=== PATIENT | female | born 1930 | race Caucasian/White ===

== ENCOUNTER 2016-10-03 12:41 | Observation (INO) | payer OTHER ==
--- NOTE | ~2016-10-03 | CR72 ---
[facility] A Service of [facility] & [facility] RADIOLOGY TEXT RESULTS PATIENT: YNES SOTOMAYOR LOCATION: [facility] : 30 UNIT #: [id number] AGE: [address]: SWETHA WALLS MD SEX: F ORDER DR: [id number] [facility] [address]. [place], [place] [address] [id number] E MR#: [id number] Acc #: [id number] NAME: YNES SOTOMAYOR. : 1930 SEX: F STUDY DATE/TIME: 10/03/2016 12:43 UNIT: [facility] ROOM: STUDY DESCRIPTION: CR Chest Single View Portable Attending Physician: Nam Barrera M.D. Ordering Physician: Nam Barrera M.D. Primary Care Physician: Cornelio Li M.D. MEDICAL IMAGING REPORT This report is preliminary unless electronic signature is present EXAM Single view chest INDICATIONS Shortness of air. One day duration. Hypertension. FINDINGS Single portable AP view of the chest compared to 10/22/2015. Heart and mediastinal contours are normal. There is background COPD and chronic interstitial opacities. Elevation of the right hemidiaphragm is noted. No pleural effusion. IMPRESSION 1. COPD and chronic interstitial opacities are unchanged. 2. Elevated right hemidiaphragm is unchanged. Dictated by... Kenyon Archuleta M.D. THIS IS AN ELECTRONICALLY VERIFIED REPORT Kenyon Archuleta M.D. at 10/03/2016 4:13 PM RPPeter/rosina TD: 10/03/2016 14:08 JOB #: [id number] MEDICAL IMAGING REPORT Page 1 of 1 COPY
--- NOTE | ~2016-10-03 | US37 ---
[facility] A Service of [facility] & [facility] RADIOLOGY TEXT RESULTS PATIENT: YNES SOTOMAYOR LOCATION: [facility] 319-01 : 30 UNIT #: [id number] AGE: [address]: SWETHA GARCIA MD SEX: F ORDER DR: [id number] [facility] [address] [facility]. [place], [place] [address] [id number] I MR#: [id number] Acc #: [id number] NAME: YNES SOTOMAYOR. : 1930 SEX: F STUDY DATE/TIME: 10/03/2016 16:11 UNIT: [facility] ROOM: [id number] STUDY DESCRIPTION: US Carotid W/Doppler Bilateral Attending Physician: Swetha Garcia M.D. Ordering Physician: Ed Kamaljit Willis M.D. Primary Care Physician: Cornelio Li M.D. MEDICAL IMAGING REPORT This report is preliminary unless electronic signature is present EXAM Carotid Doppler ultrasound HISTORY Diplopia on the left for the past several days. Chronic hypertension. TECHNIQUE Ultrasound evaluation was performed with galindo-scale, color-flow, and Doppler spectral waveform analysis. FINDINGS There is minimal plaque in both carotid bulbs. Flow velocities are normal. Peak internal carotid systolic velocity is 75 cm/sec on the right and 83 cm/sec on the left. The waveform pattern is normal on both sides. There is no evidence of turbulent flow. The IC:CC ratios are normal at 1.14 on the right and 1.05 on the left. Antegrade flow is seen in the vertebral arteries. IMPRESSION Minimal plaque in both carotid bulbs. No significant stenosis by NASCET criteria. Otherwise negative study. Normal velocities and waveforms. STAT * RESULT Dictated by... Nam Ceballos M.D. THIS IS AN ELECTRONICALLY VERIFIED REPORT Nam Ceballos M.D. at 10/03/2016 10:16 PM RLF/omid [facility] A Service of [facility] & [facility] RADIOLOGY TEXT RESULTS PATIENT: YNES SOTOMAYOR LOCATION: [facility] 319-01 : 30 UNIT #: [id number] AGE: [address]: SWETHA GARCIA MD SEX: F ORDER DR: TD: 10/03/2016 17:09 JOB #: [id number] MEDICAL IMAGING REPORT Page 1 of 1 COPY
--- NOTE | ~2016-10-03 | CT4 ---
[facility] A Service of [facility] RADIOLOGY TEXT RESULTS PATIENT: YNES SOTOMAYOR LOCATION: [facility] : 30 UNIT #: [id number] AGE: [address]: Nkechi Ambriz MD SEX: F ORDER DR: [id number] [place] [id number] [facility]. [place], [place] [address] [id number] I MR#: [id number] Acc #: [id number] NAME: YNES SOTOMAYOR : 1930 SEX: F STUDY DATE/TIME: 10/04/2016 14:26 UNIT: [facility] PCU ROOM: [facility] STUDY DESCRIPTION: CT Abd and Pelv Wo Cont Attending Physician: Nkechi Ambriz M.D. Ordering Physician: Nkechi Ambriz M.D. Primary Care Physician: Cornelio Li M.D. MEDICAL IMAGING REPORT This report is preliminary unless electronic signature is present EXAM CT of the abdomen and pelvis without contrast. INDICATIONS Abdominal pain for [address] of the abdomen and pelvis was performed without contrast. Coronal and sagittal reformatted images were obtained. This CT exam was performed with one or more of the following radiation dose reduction techniques: automatic exposure control, adjustment of mA and/or kV according to patient size, and iterative reconstruction. COMPARISON Compared with 09/27/2015. FINDINGS There are fibrotic changes in the lung bases. Small hiatal hernia. The liver and gallbladder are unremarkable. Stable cyst in the spleen. The kidneys are unremarkable. The adrenal glands and pancreas are unremarkable. PELVIS: There are scattered diverticula within the sigmoid. There is no evidence for diverticulitis. There has been a previous appendectomy. There is no free fluid. Bone windows are unremarkable. IMPRESSION 1. Scattered diverticula within the sigmoid colon, but no evidence for diverticulitis. 2. Stable cyst within the spleen. 3. Small hiatal hernia. [facility] A Service of [facility] RADIOLOGY TEXT RESULTS PATIENT: YNES SOTOMAYOR LOCATION: [facility] : 30 UNIT #: [id number] AGE: [address]: Nkechi Ambriz MD SEX: F ORDER DR: Dictated by... Andrea Becerril M.D. THIS IS AN ELECTRONICALLY VERIFIED REPORT Andrea Becerril M.D. at 10/04/2016 4:43 PM JOSE/omid TD: 10/04/2016 16:05 JOB #: [id number] MEDICAL IMAGING REPORT Page 1 of 1 COPY
--- NOTE | ~2016-10-03 | DS ---
Unit #: [id number] #: [id number] Patient: YNES SOTOMAYOR [id number] [address] [place], [place] [address] [id number] I MR#: [id number] NAME: YNES SOTOMAYOR. ROOM: 319 Age: 86 Sex: F Admission Date: 10/03/2016 : 1930 Discharge Date: 10/04/2016 Attending Physician: Nkechi Ambriz M.D. Primary Care Physician: Cornelio Li M.D. DISCHARGE SUMMARY PRINCIPAL DIAGNOSES 1. Vasovagal syncope. 2. Nonspecific chronic lower abdominal pain with pending CT scan of the abdomen and pelvis. 3. Hypertension. 4. Imdur induced headache. 5. Hyperlipidemia. 6. Anxiety. 7. Hyperlipidemia. 8. Gastroesophageal reflux disease. CONSULTANTS None. PROCEDURES 1. CT scan of the abdomen and pelvis without contrast which is currently pending. 2. Carotid Doppler, on October 03, 2016, which was normal. No stenosis per NASCET criteria. 3. Chest x-ray, on October 03, 2016, with chronic interstitial opacities and changes of COPD. Elevated right hemidiaphragm noted. This is chronic. CLINICAL HISTORY AND HOSPITAL COURSE Ms. Sotomayor is an 86-year-old female who presented to the emergency department after an episode of syncope at the [facility]. The patient was leaning her head forward having her neck shaved when she abruptly passed out. The patient awakened and was not confused. She subsequently presented to the hospital for evaluation. Vital signs upon presentation were stable with the exception of some mildly elevated blood pressure. Imaging in the emergency department was unremarkable. The patient was placed in observation for evaluation. The patient has remained on telemetry overnight without any significant arrhythmia. She did have occasional PVCs. She is not complaining of dizziness and has not had any further syncopal episodes. I suspect this was vasovagal in origin which I have discussed with the patient's daughter and the patient as well. No further workup necessary. The patient is complaining of some chronic abdominal pain that she describes as achy, better with a heating pad, happens after a bowel movement and then she feels significant fatigue. She does not have any other significant findings outside of some constipation for which she is taking medications. This has been evaluated by Dr. Pisano as an Unit #: [id number] #: [id number] Patient: YNES SOTOMAYOR outpatient. The patient's daughter feels it is mostly anxiety in origin and I tend to agree. However, the patient has insisted she feels bad and, thus, I am going to do a CT scan of abdomen and pelvis. However, if this is unremarkable, she can be discharged home later today. DISCHARGE CONDITION Stable. DISCHARGE STATUS Discharged to home. DISCHARGE MEDICATIONS 1. Xanax 0.25 mg b.i.d. 2. Norvasc 5 mg daily. 3. Crestor 20 mg at bedtime. 4. Valsartan 160 mg daily. 5. A daily multivitamin. 6. Aspirin 325 mg daily. 7. Protonix 40 mg daily. 8. Caltrate 600 mg plus D one b.i.d. 9. Vitamin B12 1,000 mcg p.o. daily. The patient is complaining of headaches from Imdur and I told her to hold this medication and contact Dr. Melchor. DISCHARGE INSTRUCTIONS 1. The patient was instructed to follow a Heart Healthy diet. 2. She can increase her activity as tolerated. FOLLOWUP The patient will follow up with her primary care physician, Dr. Li, in approximately one week. She is to contact Dr. Melchor and inform him she has stopped the Imdur. She will follow up with Dr. Pisano as instructed. Dictated by... Nkechi Ambriz M.D. SEKOU/mulugeta TD: 10/05/2016 19:17 JOB #: [id number] DISCHARGE SUMMARY Page 1 of 1 X Nkechi Ambriz MD DISCHARGE SUMMARY
--- NOTE | ~2016-10-03 | EKG ---
PATIENT: YNES SOTOMAYOR UNIT #: [id number] Ventricular Rate: 79 BPM Atrial Rate: 79 BPM P-R Interval: 148 ms QRS Duration: 76 ms Q-T Interval: 394 ms QTC Calculation(Bezet): 451 ms P [place]: 32 degrees Calculated R [place]: -14 degrees Calculated T [place]: 31 degrees Diagnosis Line: Normal sinus rhythm Diagnosis Line: Moderate voltage criteria for LVH, may be normal Diagnosis Line: variant Diagnosis Line: Borderline ECG Diagnosis Line: When compared with ECG of 03-OCT-2016 12:46, Diagnosis Line: (unconfirmed) Diagnosis Line: No significant change was found Diagnosis Line: Confirmed by LEO HAN MD ([id number]) on Diagnosis Line: 10/03/2016 9:38:22 PM INTERPRETING MD: ARSH
--- NOTE | ~2016-10-03 | HP ---
Unit #: [id number] #: [id number] Patient: YNES SOTOMAYOR [id number] [address] [place], [place] [address] [id number] E MR#: [id number] NAME: YNES SOTOMAOYR. ROOM: Age: 86 Sex: F Admission Date: 10/03/2016 : 1930 Attending Physician: Nam Barrera M.D. Primary Care Physician: Cornelio Li M.D. HISTORY AND PHYSICAL CHIEF COMPLAINT A syncopal episode. HISTORY OF PRESENT ILLNESS The patient is an 86-year-old female with a past medical history of hypertension, hyperlipidemia, GERD, anxiety, brought to the emergency room with a syncopal episode. The patient was at the [facility] and just had the hair washed and patient's neck was bent to clean up the back of the neck and the patient had the syncopal episode for two to three minutes. The patient was alright but the but the eyes were rolled up and the patient denies any head trauma. The patient complains of the headache. The patient took the Xanax earlier this morning after breakfast. The patient denies any visual changes or any numbness or tingling sensation. The patient denies any chest pain, arrhythmias or shortness of breath. The patient is being admitted for the above reasons. PAST MEDICAL HISTORY History of hypertension, hyperlipidemia, acute anxiety. PAST SURGICAL HISTORY Appendectomy. SOCIAL HISTORY The patient lives alone. She denies tobacco, alcohol or any illicit drug abuse. Code status is Do Not Resuscitate, from the records. FAMILY HISTORY Notable for sisters having CVAs. ALLERGIES No known drug allergies. HOME MEDICATIONS She is on Protonix, Xanax, Lipitor and Diovan, Norvasc, multivitamins, baby aspirin. REVIEW OF SYMPTOMS Fourteen-point review of symptoms performed and only pertinent positive findings as described above, remaining are negative. PHYSICAL EXAMINATION GENERAL APPEARANCE: On examination the patient is lying on a bed, not in acute distress. Unit #: [id number] #: [id number] Patient: YNES SOTOMAYOR VITAL SIGNS: Temperature is 97.8, pulse 85, respirations 16, blood pressure 127/81, sating 95% at room air. HEENT: Head atraumatic, normocephalic. Pupils equal, round and reactive to light and accommodation. Extraocular movements are intact. NECK: Supple. LUNGS: Clear to auscultation. HEART: Regular rate and rhythm. ABDOMEN: Soft, positive bowel sounds. EXTREMITIES: No swelling. No clubbing. No pedal edema. NEUROLOGIC: Alert, awake, oriented. No gross focal motor deficit. DIAGNOSTIC STUDIES LABORATORY DATA: Glucose 137, BUN 25, creatinine 1.2, sodium 138, potassium 4.6, chloride 105, bicarbonate 23, calcium 9.2, WBC 10.5, hemoglobin 12.5, hematocrit 38.7, platelets 274, neutrophils 78.9. UA shows 1+ leukocyte esterase and 10 to 25 urine WBCs and 50 to 100 urine hyaline crystals and a few squamous epithelial cells, negative urine bacteria. IMAGING: Chest x-ray shows COPD and chronic interstitial opacities are unchanged. ASSESSMENT 1. Syncope. 2. Hypertension. 3. Hyperlipidemia. 4. Questionable cystitis/urinary tract infection. PLAN 1. Plan to admit the patient to the observation with the telemetry. 2. Rule out ischemia with serial troponin. 3. Check the carotid Doppler. 4. Repeat the labs again in the morning. 5. Check the straight cath to rule out the UTI. Further recommendations will follow as more lab results are available. Dictated by Robin Melton TD: 10/03/2016 15:06 JOB #: [id number] Unit #: [id number] #: [id number] Patient: YNES SOTOMAYOR HISTORY AND PHYSICAL Page 1 of 1 X X HISTORY AND PHYSICAL
--- NOTE | ~2016-10-03 | EKG ---
PATIENT: YNES SOTOMAYOR UNIT #: [id number] Ventricular Rate: 83 BPM Atrial Rate: 83 BPM P-R Interval: 136 ms QRS Duration: 78 ms Q-T Interval: 390 ms QTC Calculation(Bezet): 458 ms P [place]: 36 degrees Calculated R [place]: -15 degrees Calculated T [place]: 31 degrees Diagnosis Line: Normal sinus rhythm Diagnosis Line: Moderate voltage criteria for LVH, may be normal Diagnosis Line: variant Diagnosis Line: Borderline ECG Diagnosis Line: When compared with ECG of 22-OCT-2015 08:21, Diagnosis Line: No significant change was found Diagnosis Line: Confirmed by LEO HAN MD ([id number]) on Diagnosis Line: 10/03/2016 9:37:20 PM INTERPRETING : ARSH
--- NOTE | ~2016-10-03 | DS ---
Unit #: [id number] #: [id number] Patient: YNES SOTOMAYOR [id number] [address] [address] [id number] I MR#: [id number] NAME: YNES SOTOMAYOR. ROOM: 319 Age: 86 Sex: F Admission Date: 10/03/2016 : 1930 Discharge Date: 10/04/2016 Attending Physician: Nkechi Ambriz M.D. Primary Care Physician: Cornelio Li M.D. DISCHARGE SUMMARY ADDENDUM Please note, patient's CT scan of the abdomen and pelvis did not reveal any acute abnormalities, and she was discharged home. Dictated by... Robin Nick/bart TD: 10/06/2016 15:14 JOB #: [id number] DISCHARGE SUMMARY Page 1 of 1 X Nkechi Ambriz MD X DISCHARGE SUMMARY
[~2016-10-03 12:41] MED LIST: ACETAMINOPHEN PO; ALPRAZOLAM0.25 M1 PO; AMLODIPINE BESYL5 MG PO; B-12250 MCG PO; BACTRIM DS TABL1 TA2 PO; BAYER ASPIRIN325 M1 PO; CALTRATE 600+D PO; CALTRATE-600/VI1 TA2 PO; CIPRO PO; CRESTOR PO; DIOVAN HCT 160/1 TAB PO; DIOVAN160 MG DOB; FAMOTIDINE PO; LIPITOR PO; MIACALCIN4 ML; MULTI VITAMIN1 EACH PO; OMEPRAZOLE20 M2 PO; PREDNISONE PO; PRILOSEC PO; PROAIR HFA8.5 GM INH; REGLAN PO; TESSALON200 MG PO; TRILIPEX PO; VIBRAMYCIN100 M1 DOB; ZOFRAN PO; [UNRECOGNIZED DRUG - OTHER] PO
[2016-10-03 13:09] LABS: URINE SOURCE CLEAN CATCH
[2016-10-03 13:16] LABS: BASOPHIL# 0.1 X10e3 (0-0.3); BASOPHIL% 0.6 % (0-2.5); EOSINOPHIL# 0.1 X10e3 (0-0.7); EOSINOPHIL% 0.9 % (0.0-7.0); HEMATOCRIT 38.7 % (35.0-45.0); HEMOGLOBIN 12.5 gm/dL (12.0-16.0); LYMPHOCYTE# 1.5 X10e3 (1.0-3.5); LYMPHOCYTE% 13.9 % (17.0-45.0); MEAN CELL VOLUME 87.9 FL (83-96); MEAN CORPUSCULAR HEMOGLOBIN 28.4 PG (28-34); MEAN CORPUSCULAR HGB CONC 32.3 g/dL (30-36); MEAN PLATELET VOLUME 8.4 FL (6.5-11.5); MONOCYTE# 0.6 X10e3 (0-1.0); MONOCYTE% 5.7 % (3.0-12.0); NEUTROPHIL# 8.3 X10e3 (1.5-7.1); NEUTROPHIL% 78.9 % (40-75); PLATELET COUNT 274 X10e3 (140-420); RED CELL DISTRIBUTION WIDTH 14.9 % (11.0-15.5); WHITE BLOOD COUNT 10.5 X10e3 (4.0-10.5)
[2016-10-03 13:16] LABS: URINE APPEARANCE CLOUDY; URINE BLOOD NEG (NEG); URINE COLOR DK YELLOW; URINE GLUCOSE NEG (NEG); URINE KETONE TRACE (NEG); URINE LEUKOCYTE ESTERASE 1+ (NEG); URINE NITRATE NEG (NEG); URINE PROTEIN NEG (NEG)
[2016-10-03 13:18] LABS: URINE BACTERIA AUWI NEG (NEGATIVE); URINE SQUAMOUS EPITHELIAL CELL FEW /[HPF]
[2016-10-03 13:25] LABS: DIFF IND NO
[2016-10-03 13:26] LABS: URINE BILIRUBIN NEG (NEG)
[2016-10-03 13:27] LABS: U HYALINE CASTS AUWI 50-100 /[LPF]
[2016-10-03 13:28] LABS: URBCS1 AUWI NEG /[HPF] (0-2)
[2016-10-03 13:40] LABS: BUN/CREATININE RATIO 20.83; CALCIUM SERUM 9.2 mg/dL (8.4-10.2); CREATININE SERUM 1.2 mg/dL (0.6-1.4); GLOM FILT RATE Estimated 40.9 mL/min (>60); POTASSIUM 4.6 mmol/L (3.5-5.1)
[2016-10-03] MEDS ORDERED: PROTONIX PO (14:40)
[2016-10-03] MEDS ORDERED: ALPRAZOLAM0.25 MG PO (14:40)
[2016-10-03] MEDS ORDERED: VALSARTAN160 MG PO (14:41)
[2016-10-03] MEDS ORDERED: AMLODIPINE BESYL5 MG PO (14:41)
[2016-10-03] MEDS ORDERED: ROSUVASTATIN CA20 MG PO (14:41)
[2016-10-03] MEDS ORDERED: MULTIVITAMINS1 EAC3 PO (14:42)
[2016-10-03] MEDS ORDERED: VITAMIN B122500 MCG PO (14:42)
[2016-10-03] MEDS ORDERED: CALTRATE 600 +1 EACH PO (14:43)
[2016-10-03] MEDS ORDERED: IMDUR-ER30 M2 PO (14:43)
[2016-10-03] MEDS ORDERED: BAYER ASPIRIN325 M1 PO (14:43)
[2016-10-04 06:09] LABS: HEMATOCRIT 38.1 % (35.0-45.0); HEMOGLOBIN 12.4 gm/dL (12.0-16.0); MEAN CORPUSCULAR HEMOGLOBIN 28.4 PG (28-34); MEAN CORPUSCULAR HGB CONC 32.6 g/dL (30-36); MEAN PLATELET VOLUME 8.6 FL (6.5-11.5); RED BLOOD COUNT 4.38 X10e (3.90-5.30); RED CELL DISTRIBUTION WIDTH 14.9 % (11.0-15.5); WHITE BLOOD COUNT 8.9 X10e3 (4.0-10.5)
[2016-10-04 06:54] LABS: BUN/CREATININE RATIO 17.5; CALCIUM SERUM 9.2 mg/dL (8.4-10.2); CREATININE SERUM 1.2 mg/dL (0.6-1.4); GLOM FILT RATE Estimated 40.9 mL/min (>60)
== END 2016-10-04 17:55 | disposition home or self-care (01) ==
LOC: CED 12:41 → CEDOF 14:55 → C3A PCU 17:26
PROVIDERS: Emergency Medicine; Internal Medicine
DX: R55 Syncope and collapse (principal); R10.30 Lower abdominal pain, unspecified; G89.29 Other chronic pain; I10 Essential (primary) hypertension; G44.40 Drug-induced headache, not elsewhere classified, not intractable; T46.3X5A Adverse effect of coronary vasodilators, initial encounter; E78.5 Hyperlipidemia, unspecified; F41.9 Anxiety disorder, unspecified; K21.9 Gastro-esophageal reflux disease without esophagitis; K57.30 Diverticulosis of large intestine without perforation or abscess without bleeding; K44.9 Diaphragmatic hernia without obstruction or gangrene; D73.4 Cyst of spleen; Z82.3 Family history of stroke
CPT/HCPCS: 36415; 71010; 74176; 80048; 81003; 84484; 85025; 85027; 93005; 93880; 94760; 96372; 96374; 99285; G0378; J0360; J1650

== ENCOUNTER 2016-12-13 06:43 | Emergency (ER) | payer OTHER ==
--- NOTE | ~2016-12-13 | EKG ---
PATIENT: YNES SOTOMAYOR UNIT #: [id number] Ventricular Rate: 98 BPM Atrial Rate: 98 BPM P-R Interval: 132 ms QRS Duration: 74 ms Q-T Interval: 350 ms QTC Calculation(Bezet): 446 ms P [place]: 73 degrees Calculated R [place]: 17 degrees Calculated T [place]: 67 degrees Diagnosis Line: Sinus rhythm with Premature ventricular complexes Diagnosis Line: Otherwise normal ECG Diagnosis Line: No previous ECGs available Diagnosis Line: Confirmed by MARU HUTCHINSON MD ([id number]) on 12/18/2016 Diagnosis Line: 2:31:32 PM INTERPRETING MD: EVANGELINA GARCÍA
--- NOTE | ~2016-12-13 | CT4 ---
[facility] A Service of [facility] RADIOLOGY TEXT RESULTS PATIENT: YNES SOTOMAYOR LOCATION: [facility] : 30 UNIT #: [id number] AGE: [address]: Michel Do MD SEX: F ORDER DR: [id number] [facility] [address] [place], [place] [address] [id number] E MR#: [id number] Acc #: [id number] NAME: YNES SOTOMAYOR. : 1930 SEX: F STUDY DATE/TIME: 12/13/2016 8:17 UNIT: [facility] ROOM: STUDY DESCRIPTION: CT Abd and Pelv Wo Cont Attending Physician: Michel Do M.D. Ordering Physician: Michel Do M.D. Primary Care Physician: Cornelio Li M.D. MEDICAL IMAGING REPORT This report is preliminary unless electronic signature is present EXAM Abdomen and pelvis CT without contrast HISTORY Abdominal pain across the lower abdomen and periumbilical region for the past 2 days. COMPARISON 10/04/2016 TECHNIQUE Axial images were obtained without contrast. This CT exam was performed with one or more of the following radiation dose reduction techniques: automatic exposure control, adjustment of mA and/or kV according to patient size, and iterative reconstruction. FINDINGS The liver, spleen, and pancreas are normal in size. A splenic cyst is again noted and unchanged. There is a moderate hiatal hernia. There is no evidence of hydronephrosis or kidney stone disease. No adrenal masses are seen. There is no evidence of retroperitoneal adenopathy or ascites, and no distended bowel loops are noted. Scans of the pelvis show no evidence of pelvic adenopathy, mass or fluid collection. Diverticulosis is seen without evidence of diverticulitis. The appendix is surgically absent. IMPRESSION Diverticulosis. No acute or inflammatory changes are seen in the abdomen or pelvis. No evidence of bowel obstruction. Simple splenic cyst again noted and unchanged. Moderate hiatal hernia again noted and unchanged. [facility] A Service [facility] RADIOLOGY TEXT RESULTS PATIENT: YNES SOTOMAYOR LOCATION: [facility] : 30 UNIT #: [id number] AGE: [address]: Michel Do MD SEX: F ORDER DR: Dictated by... Nam Ceballos M.D. THIS IS AN ELECTRONICALLY VERIFIED REPORT Nam Ceballos M.D. at 12/13/2016 4:49 PM SHAYLEE/omid TD: 12/13/2016 16:07 JOB #: [id number] MEDICAL IMAGING REPORT Page 1 of 1 COPY
[~2016-12-13 06:43] MED LIST changes: +ALPRAZOLAM0.25 MG PO; +CALTRATE 600 +1 EACH PO; +IMDUR-ER30 M2 PO; +MULTIVITAMINS1 EAC3 PO; +PROTONIX PO; +ROSUVASTATIN CA20 MG PO; +VALSARTAN160 MG PO; +VITAMIN B122500 MCG PO
[2016-12-13 07:55] LABS: URINE SOURCE CLEAN CATCH
[2016-12-13 08:07] LABS: URINE APPEARANCE CLEAR; URINE BILIRUBIN NEG (NEG); URINE BLOOD NEG (NEG); URINE COLOR YELLOW; URINE GLUCOSE NEG (NEG); URINE KETONE NEG (NEG); URINE LEUKOCYTE ESTERASE TRACE (NEG); URINE NITRATE NEG (NEG); URINE PROTEIN 1+ (NEG); URINE SPECIFIC GRAVITY 1.017 (1.003-1.035); URINE UROBILINOGEN 0.2 MG/DL (NEG)
[2016-12-13 08:10] LABS: CULTURE INDICATED? NO; U HYALINE CASTS AUWI 0-2 /[LPF]; URBCS1 AUWI 0-2 /[HPF] (0-2); URINE BACTERIA AUWI NEG (NEGATIVE); URINE SQUAMOUS EPITHELIAL CELL NONE SEEN /[HPF]; UWBCS1 AUWI 0-2 (0-5)
[2016-12-13 08:26] LABS: POC - CKMB <1.0 ng/mL (0.0-7.9); POC - TROPONIN <0.05 ng/mL (<=0.05)
[2016-12-13 08:28] LABS: BASOPHIL% 0.6 % (0-2.5); EOSINOPHIL% 0.5 % (0.0-7.0); HEMATOCRIT 39.6 % (35.0-45.0); HEMOGLOBIN 12.8 gm/dL (12.0-16.0); LYMPHOCYTE% 12.5 % (17.0-45.0); MEAN CELL VOLUME 86.3 FL (83-96); MEAN CORPUSCULAR HEMOGLOBIN 27.9 PG (28-34); MEAN CORPUSCULAR HGB CONC 32.3 g/dL (30-36); MEAN PLATELET VOLUME 8.5 FL (6.5-11.5); MONOCYTE# 0.4 X10e3 (0-1.0); MONOCYTE% 5.1 % (3.0-12.0); NEUTROPHIL# 6.7 X10e3 (1.5-7.1); NEUTROPHIL% 81.3 % (40-75); PLATELET COUNT 307 X10e3 (140-420); RED BLOOD COUNT 4.59 X10e (3.90-5.30); RED CELL DISTRIBUTION WIDTH 14.4 % (11.0-15.5); WHITE BLOOD COUNT 8.3 X10e3 (4.0-10.5)
[2016-12-13 08:39] LABS: DIFF IND NO
[2016-12-13 08:55] LABS: ALBUMIN SERUM 3.8 g/dL (3.5-5.0); BILIRUBIN, DIRECT 0.1 mg/dL (0.0-0.2); BILIRUBIN,INDIRECT 0.7 mg/dL (0.0-0.9); BILIRUBIN,TOTAL 0.8 mg/dL (0.2-2.0); CALCIUM SERUM 9.1 mg/dL (8.4-10.2); CREATININE SERUM 1.2 mg/dL (0.6-1.4); GLOM FILT RATE Estimated 40.9 mL/min (>60); POTASSIUM 4.4 mmol/L (3.5-5.1); PROTEIN TOTAL SERUM 7.5 g/dL (6.0-8.3)
== END 2016-12-13 12:20 | disposition home or self-care (01) ==
LOC: CED 06:43
PROVIDERS: Emergency Medicine
DX: R10.9 Unspecified abdominal pain (principal); Z88.2 Allergy status to sulfonamides
CPT/HCPCS: 36415; 74176; 80048; 80076; 81003; 82553; 83690; 84484; 85025; 93005; 99284

== ENCOUNTER 2017-02-26 18:20 | Inpatient (IN) | payer OTHER ==
[~2017-02-26] VITALS: Ht 157.5 cm; Wt 78.6 kg
--- NOTE | ~2017-02-26 | CR72 ---
[facility] A Service of [facility] & [facility] RADIOLOGY TEXT RESULTS PATIENT: YNES SOTOMAYOR LOCATION: A 230 : 30 UNIT #: [id number] AGE: [address]: Nkechi Ambriz MD SEX: F ORDER DR: [id number] [facility] [address] [facility] [place], [place] [address] [id number] I MR#: [id number] Acc #: [id number] NAME: YNES SOTOMAYOR : 1930 SEX: F STUDY DATE/TIME: 02/26/2017 19:16 UNIT: [facility] ROOM: 230 STUDY DESCRIPTION: CR Chest Single View Portable Attending Physician: Sonia Lang M.D. Referring Physician: Cornelio Li M.D. Ordering Physician: Tereso Simental M.D. Primary Care Physician: Cornelio Li M.D. MEDICAL IMAGING REPORT This report is preliminary unless electronic signature is present EXAM Portable AP view of the chest. COMPARISON October 03, 2016, and October 22, 2015. INDICATIONS 86-year-old female with shortness of air. FINDINGS When allowing for slight differences in patient positioning, interstitial opacities throughout the lungs are likely stable to possibly slightly increased in the upper lobes. Calcified granuloma again seen in the right pulmonary apex. No evidence of pneumothorax or pleural effusion. Cardiomediastinal silhouette is within normal limits. There is calcification of the aortic arch. There is also stable scarring adjacent to the calcified granuloma in the right pulmonary apex. IMPRESSION Interstitial opacities throughout the lungs appear grossly stable when comparing to most recent chest radiograph of October 03, 2016, although that may be slightly increased in the upper lobes. This could reflect an atypical infectious process. Findings suggest a background interstitial lung disease. Clinical correlation recommended. No pleural effusion. No consolidation. Dictated by... Darrion Newsome M.D. THIS IS AN ELECTRONICALLY VERIFIED REPORT Darrion Newsome M.D. at 03/04/2017 11:05 AM MATIAS/alondra [facility] A Service of [facility] & [facility] & [facility] RADIOLOGY TEXT RESULTS PATIENT: YNES SOTOMAYOR LOCATION: [facility] 230-01 : 30 UNIT #: [id number] AGE: [address]: Nkechi Ambriz MD SEX: F ORDER DR: TD: 02/27/2017 08:47 JOB #: [id number] MEDICAL IMAGING REPORT Page 1 of 1 COPY
--- NOTE | ~2017-02-26 | HP ---
Unit #: [id number] #: [id number] Patient: YNES SOTOMAYOR [id number] [address] [place], [place] [address] [id number] I MR#: [id number] NAME: YNES SOTOMAYOR ROOM: 230 Age: 86 Sex: F Admission Date: 02/26/2017 : 1930 Attending Physician: Sonia Lang M.D. Referring Physician: Cornelio Li M.D. Primary Care Physician: Cornelio Li M.D. HISTORY AND PHYSICAL CHIEF COMPLAINT Shortness of breath and headache. HISTORY This pleasant 86-year-old female with hypertension, hyperlipidemia, anxiety, some sort of lung disease, followed by Dr. Hu, is admitted for shortness of breath and headache. Patient notes posterior headache over the past week. States that two weeks ago she began to experience increasing dyspnea on exertion, with some chills. Her headache and shortness of breath worsened today. She presented to this emergency department where her white blood count is found to be 25.8. Chest x-ray performed shows interstitial opacities, which may be increased in the upper lobes as compared before, and interstitial lung disease. The patient was noted to be somewhat short of breath in the ER, and she was bolused with 500 mL of saline, given Tylenol for a headache, doxycycline and Solu-Medrol. Currently is feeling somewhat improved. Has a minor cough with the above, usually in the morning. Notes some minor diarrhea after treatment with ciprofloxacin and then Macrodantin for a recent UTI. Had a mild pleuritic chest pain earlier today. PAST MEDICAL HISTORY 1. Hypertension. 2. Hyperlipidemia. 3. Anxiety. 4. Possible vasovagal syncope admitted 09/2016. 5. GERD. 6. History of Imdur induced headaches. 7. Appendectomy. ALLERGIES No known drug allergies. HOME MEDICATIONS Protonix 40 mg daily; Xanax 0.25 mg b.i.d.; Crestor 20 mg daily; Diovan 160 mg daily; Norvasc 5 mg daily; vitamins; calcium; aspirin 325 mg daily. FAMILY HISTORY CVA. SOCIAL HISTORY The patient lives alone. She is essentially a lifelong nonsmoker. Does not drink alcohol. Unit #: [id number] #: [id number] Patient: YNES SOTOMAYOR REVIEW OF SYSTEMS Notable for headache, shortness of breath, some sort of heart or lung disease. Diagnosis is unknown. Hypertension, hyperlipidemia, anxiety, appendectomy. Minor diarrhea. Recent UTI. Cataract extraction. All other systems were reviewed and otherwise negative. PHYSICAL EXAMINATION GENERAL: Pleasant, 86-year-old female currently in no acute distress. VITAL SIGNS: Temperature 97.5, pulse 107, respirations 19, blood pressure 148/87, O2 saturation 92% on room air. HEENT: Eyes - PERRLA, extraocular muscles are intact. Pharynx - dry mucosal membranes. NECK: Supple without adenopathy or thyromegaly. CHEST: Reveals crackles throughout. CARDIAC: Normal S1 and S2. Very soft systolic murmur best heard along the left sternal border. ABDOMEN: Bowel sounds are present. No hepatosplenomegaly, tenderness, or masses. EXTREMITIES: Without clubbing, cyanosis or edema. Pedal pulses are somewhat diminished. NEUROLOGIC: Patient is awake, alert and oriented. Cranial nerves are intact. Equal strength throughout. DIAGNOSTIC STUDIES ADMISSION LABS: Hematocrit 38.3, white blood count 25.8, normal platelet count. Left shift is noted. SMA 12 - glucose is 176, sodium 133. Lactic acid, BNP normal. Cardiac markers negative. Urinalysis - trace protein, otherwise benign appearing urine. IMAGING STUDIES: Head CT shows small vessel ischemic disease bilaterally. Chest x-ray - interstitial opacities, stable since 09/2016 but may be increased in the upper lobes with interstitial lung disease. CARDIOLOGY STUDIES: EKG - normal sinus rhythm rate 98, 1 PVC noted. ASSESSMENT 1. Increased shortness of breath with increased infiltrate and chest x-ray with white blood count of 25.8. However, patient's symptoms are not typical of pneumonia. She is being seen by Dr. Hu for some sort of cardiac or pulmonary diagnosis, I'm unsure. Chest x-ray looks to be most compatible with interstitial lung disease, possible fibrosis but increased. 2. Leukocytosis. 3. Posterior headache. 4. Recent UTI, given Cipro and then Macrodantin. 5. Essential hypertension. 6. Anxiety. 7. Hyperlipidemia. PLANS 1. Rocephin and doxycycline pending blood cultures. Will check stool for C. diff, check procalcitonin level and a CT scan of the chest without contrast. 2. Will obtain working diagnosis from Dr. Hu's office. Unit #: [id number] #: [id number] Patient: YNES SOTOMAYOR 3. DVT prophylaxis. 4. Further workup and consultants depending on above. 5. MRA of the brain in the morning to rule out aneurysm. Dictated by Sonia Lang M.D. AML/ts TD: 02/27/2017 05:36 JOB #: [id number] HISTORY AND PHYSICAL Page 1 of 1 X Sonia Lang MD X HISTORY AND PHYSICAL
--- NOTE | ~2017-02-26 | DS ---
Unit #: [id number] #: [id number] Patient: YNES SOTOMAYOR [id number] [address] [place], [place] [address] [id number] I MR#: [id number] NAME: YNES SOTOMAYOR. ROOM: 230 Age: 86 Sex: F Admission Date: 02/26/2017 : 1930 Discharge Date: 03/02/2017 Attending Physician: Nkechi Ambriz M.D. Referring Physician: Cornelio Li M.D. Primary Care Physician: Cornelio Li M.D. DISCHARGE SUMMARY FINAL DIAGNOSES 1. Pulmonary fibrosis. 2. Chronic obstructive pulmonary disease exacerbation. 3. Respiratory failure. SECONDARY DIAGNOSES 1. Hypertension. 2. Hyperlipidemia. 3. Anxiety. 4. History of vasovagal syncope. CONSULTS Dr. Xavier Restrepo. HOSPITAL COURSE Patient is an 86-year-old female who was admitted with, what looked like, COPD exacerbation. She does have a history of acute renal failure and COPD. She had some headache while she was admitted. Her glucose ran high because of steroids. Though she was concerned that she may need oxygen at home, she did qualify for home O2, for which this has been arranged. She was scheduled to follow up with Dr. Xavier Restrepo in the office in 1 to 2 weeks and PCP in 3 to 5 days. MEDICATIONS Medications on discharge include: 1. Zoloft 50 mg p.o. daily. 2. Symbicort 160/4.5 - 2 puffs inhalational b.i.d. 3. Xanax 0.25 mg p.o. b.i.d. 4. Norvasc 5 mg p.o. daily. 5. Crestor 20 mg p.o. daily. 6. Diovan 160 mg p.o. daily. 7. Multivitamin 1 tablet p.o. daily. 8. Lavinia aspirin 325 mg p.o. daily. 9. Protonix 40 mg p.o. daily. 10. Caltrate plus D 600 mg p.o. b.i.d. 11. Doxycycline 100 mg p.o. twice daily for 5 days. 12. Nephrocaps daily per home dose. DISCHARGE PLAN 1. She has scheduled followup PCP in 3 to 5 days. 2. Pulmonary in 1 to 2 weeks. 3. She will be discharged home with home health. NOTE: Time spent coordinating discharge was about 26 minutes. Unit #: [id number] #: [id number] Patient: YNES SOTOMAYOR Dictated by... Robin Redman TD: 03/02/2017 13:07 JOB #: [id number] DISCHARGE SUMMARY Page 1 of 1 X Michelle Jones MD X DISCHARGE SUMMARY
--- NOTE | ~2017-02-26 | CR240 ---
[facility] A Service of [facility] & [facility] RADIOLOGY TEXT RESULTS PATIENT: YNES SOTOMAYOR LOCATION: [facility] : 30 UNIT #: [id number] AGE: [address]: Nkechi Ambriz MD SEX: F ORDER DR: [id number] [facility] [address]. [place], [place] [address] [id number] I MR#: [id number] Acc #: [id number] NAME: YNES SOTOMAYOR. : 1930 SEX: F STUDY DATE/TIME: 02/28/2017 11:00 UNIT: [facility] ROOM: [facility] STUDY DESCRIPTION: CR Swallowing Fx W Cine or Vid Attending Physician: Nkechi Ambriz M.D. Referring Physician: Cornelio Li M.D. Ordering Physician: Onofre Restrepo M.D. Primary Care Physician: Cornelio Li M.D. MEDICAL IMAGING REPORT This report is preliminary unless electronic signature is present EXAM Modified barium swallow INDICATION This examination was performed by the speech pathologist under my supervision. Total fluoroscopy time was 2.4 minutes. FINDINGS There is no evidence of penetration or aspiration. Patient did require multiple swallows for full clearing of the pharynx upon administration of thicker materials. Please see the speech pathologist report for full description of procedure and findings. IMPRESSION No aspiration or penetration identified. Dictated by... Deborah Forrester M.D. THIS IS AN ELECTRONICALLY VERIFIED REPORT Deborah Forrester M.D. at 03/03/2017 4:53 PM AFF/asia TD: 03/03/2017 14:32 JOB #: [id number] MEDICAL IMAGING REPORT Page 1 of 1 COPY
--- NOTE | ~2017-02-26 | EKG ---
PATIENT: YNES SOTOMAYOR UNIT #: [id number] Ventricular Rate: 97 BPM Atrial Rate: 97 BPM P-R Interval: 132 ms QRS Duration: 78 ms Q-T Interval: 352 ms QTC Calculation(Bezet): 447 ms P Dixie: 33 degrees Calculated R Dixie: -12 degrees Calculated T Dixie: 34 degrees Diagnosis Line: Sinus rhythm with Premature ventricular complexes Diagnosis Line: or Fusion complexes Diagnosis Line: Moderate voltage criteria for LVH, may be normal Diagnosis Line: variant Diagnosis Line: Borderline ECG Diagnosis Line: When compared with ECG of 13-DEC-2016 07:00, Diagnosis Line: Fusion complexes are now Present Diagnosis Line: Confirmed by BRADLY RAMOS MD ([id number]) on Diagnosis Line: 02/28/2017 11:31:59 AM INTERPRETING MD: RACHEL GARCÍA
--- NOTE | ~2017-02-26 | CO ---
Unit #: [id number] #: [id number] Patient: YNES SOTOMAYOR [id number] [address] [place], [place] [address] [id number] I MR#: [id number] NAME: YNES SOTOMAYOR. ROOM: 230 Age: 86 Sex: F Admission Date: 02/26/2017 : 1930 Attending Physician: Nkechi Ambriz M.D. Primary Care Physician: Cornelio Li M.D. CONSULTATION REPORT HISTORY OF PRESENT ILLNESS Ms. Sotomayor is an 86-year-old white female. We are asked to see for increasing dyspnea. She has been more short of breath over the last year, which worsened yesterday on the day of admission. She also admitted to some headache over the last weeks. She has had possibly some chills, but no documented fever. Generally, no purulent sputum. In the emergency room, her white count was 25,800. Chest x-ray showed interstitial opacities and emphysematous changes. She was bolused with 500 normal saline, given Tylenol, started on doxycycline and Solu-Medrol. Her room air O2 saturation was recorded at 93%. She apparently had some rhonchi in her lower lobes. A chest CT scan was done and read by Radiology as showing some emphysematous changes and pulmonary fibrosis. She had a previous chest CT scan done in 09/2015, which was read as showing moderate underlying emphysematous changes with scattered linear densities with mild interstitial thickening in the right lower lobe with some ground-glass change. PAST MEDICAL HISTORY Significant for hypertension, hyperlipidemia, anxiety, possible vasovagal syncope in 09/2016, GERD, history of Imdur-induced headaches. She had an appendectomy. ALLERGIES None known. HOME MEDICATIONS Protonix, Xanax, Crestor, Norvasc, calcium, multivitamins, and aspirin. FAMILY HISTORY CVA. SOCIAL HISTORY Lives alone. Smoked for about 15 years, less than a pack a day. used to smoke. No alcohol. No illicit drugs. REVIEW OF SYSTEMS CONSTITUTIONAL: No documented fever, possibly some chills. HEENT: Some rhinorrhea, nasal congestion. PULMONARY: Short of breath. Does have some history of possible TB, was treated with medications for a year in 1960s. She had also believe been on some medicine for heart may have been amiodarone, could have been on something for pulmonary hypertension. We currently do not have those records from Dr. Hu, Cardiology. GI: Does have difficulty swallowing food, feels like something gets stuck Unit #: [id number] #: [id number] Patient: YNES SOTOMAYOR in her esophagus at times. Does have reflux. Does have history of hiatal hernia moderate size. : No hematuria or dysuria. ENDOCRINE: No polyuria or polydipsia. HEMATOLOGIC: No easy bruising or bleeding. SKIN: No rash. NEURO: History of CVA. No unilateral weakness or numbness. PHYSICAL EXAMINATION GENERAL: Elderly white female, in no distress, able to speak in sentences. VITAL SIGNS: Blood pressure is 152/75, pulse 92, respiratory rate 16, afebrile. HEENT: Normocephalic and atraumatic. Pupils are equal, round, and reactive. Sclerae nonicteric. Nasal passages patent. Posterior pharynx clear. Mucous membranes moist. NECK: Supple. Trachea midline. No cervical or supraclavicular lymphadenopathy. LUNGS: Reveal bilateral rales three-quarters of the way up posteriorly. CARDIAC: Regular rate and rhythm. Could not appreciate murmur, rub, or gallop. ABDOMEN: Nontender. Bowel sounds present. No hepatosplenomegaly. EXTREMITIES: Without clubbing, cyanosis, or edema. NEUROLOGIC: Awake and oriented x3. Cranial nerves intact. Muscle strength symmetric. Affect, calm. SKIN: Warm and dry. DIAGNOSTIC STUDIES LABORATORY RESULTS: BMP is unremarkable. CO2 is 22, glucose 164. Lactic acid 1.6. Procalcitonin is pending. BNP is 68. White blood cell count was 25,800, hematocrit 38.3. Currently, white count is 10,400, hematocrit is 35.1, platelet count normal. Urinalysis reveals trace protein, 1+ blood, 0 to 2 white cells, no bacteria. Blood cultures currently negative. Stool for Clostridium difficile, pending. IMPRESSION 1. Chronic obstructive pulmonary disease and evidence of pulmonary fibrosis. 2. History of diastolic failure. 3. Pulmonary hypertension. 4. Gastroesophageal reflux disease. PLAN We will review CT scans with thoracic radiologist. We will need outpatient pulmonary function tests. Agree with treatment with inhaled bronchodilators, IV steroids at this point. Supplemental oxygen to maintain adequate saturations. We will see if there is any reflux or aspiration involved in fibrotic process. We will have Speech to see. We will make further recommendations pending this. Dictated by... Onofre Restrepo M.D. LILLIAM/terri TD: 02/27/2017 14:40 JOB #: [id number] Unit #: [id number] #: [id number] Patient: YNES SOTOMAYOR CONSULTATION REPORT Page 1 of 1 X Onofre Restrepo MD X CONSULTATION REPORT
--- NOTE | ~2017-02-26 | MR122 ---
[facility] A Service of [facility] & [facility] RADIOLOGY TEXT RESULTS PATIENT: YNES SOTOMAYOR LOCATION: C2A 230 : 30 UNIT #: [id number] AGE: [address]: Nkechi Ambriz MD SEX: F ORDER DR: [id number] [facility] [address] [place], [place] [address] [id number] I MR#: [id number] Acc #: [id number] NAME: YNES SOTOMAYOR. : 1930 SEX: F STUDY DATE/TIME: 02/27/2017 00:00 UNIT: [facility] ROOM: 230 STUDY DESCRIPTION: MR MRA Head Wo Contrast Attending Physician: Sonia Lang M.D. Referring Physician: Cornelio Li M.D. Ordering Physician: Sonia Lang M.D. Primary Care Physician: Cornelio Li M.D. MEDICAL IMAGING REPORT This report is preliminary unless electronic signature is present EXAM MRA brain, 02/27 at 00:00 hours. INDICATIONS Headache for 2 months but worse over the last week. TECHNIQUE Noncontrast 3-D [id number] images were obtained through the brain. MIP reconstructions of the arterial system were obtained. COMPARISON Comparison made with MRA from 02/25/2011. FINDINGS The vertebrobasilar system is within normal limits. Patient has a origin right posterior cerebral artery as seen before. 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 No vessel cutoff is seen intracranially. No focal flow-limiting stenosis is identified by NASCET criteria. IMPRESSION MRA is relatively stable from the 2010 exam. There is 4 mm of dilatation at the origin of the left posterior communicator which is unchanged. Patient has a origin right [facility]. No flow-limiting intracranial stenosis is identified by NASCET criteria. Vertebrobasilar system appears normal. Dictated by... Nam Ceballos Jr., M.D. THIS IS AN ELECTRONICALLY VERIFIED REPORT Nam Ceballos Jr., M.D. at 02/28/2017 1:53 AM [facility] A Service of [facility] & [facility] RADIOLOGY TEXT RESULTS PATIENT: YNES SOTOMAYOR LOCATION: C2[facility] 230-01 : 30 UNIT #: [id number] AGE: [address]: Nkechi Ambriz MD SEX: F ORDER DR: JAZMYN/mulugeta TD: 02/27/2017 12:24 JOB #: [id number] MEDICAL IMAGING REPORT Page 1 of 1 COPY
--- NOTE | ~2017-02-26 | CT57 ---
[facility] A Service of [facility] RADIOLOGY TEXT RESULTS PATIENT: YNES SOTOMAYOR LOCATION: [facility] 230- : 30 UNIT #: [id number] AGE: [address]: Nkechi Ambriz MD SEX: F ORDER DR: [id number] [facility] [address] [place], [place] [address] [id number] I MR#: [id number] Acc #: [id number] NAME: YNSE SOTOMAYOR. : 1930 SEX: F STUDY DATE/TIME: 02/27/2017 00:34 UNIT: [facility] ROOM: 230 STUDY DESCRIPTION: CT Chest Wo Cont Attending Physician: Sonia Lang M.D. Referring Physician: Cornelio Li M.D. Ordering Physician: Sonia Lang M.D. Primary Care Physician: Cornelio Li M.D. MEDICAL IMAGING REPORT This report is preliminary unless electronic signature is present EXAM Chest CT 02/27 at 00:34. INDICATIONS Dyspnea and headache that started this afternoon. Weakness over months, worsening. TECHNIQUE Axial images were obtained through the chest without contrast. Multiplanar reformats were obtained. This CT exam was performed with one or more of the following radiation dose reduction techniques: automatic exposure control, adjustment of mA and/or kV according to patient size, and iterative reconstruction. COMPARISON Comparison made with 09/27/2015. FINDINGS Moderate size hiatal hernia is again seen. No pleural or pericardial effusion. No adenopathy. There is atherosclerotic disease. Emphysema is again seen with scattered areas of fibrotic scarring, most pronounced in the right apex. There is evidence of mosaic attenuation suggesting air trapping and small airways disease. Upper abdomen shows a cyst in the spleen. IMPRESSION 1. Emphysema with interstitial fibrosis. 2. Mosaic attenuation pattern in the lung parenchyma today suggesting areas of air trapping. This may be related to small airways disease. 3. Stable appearance of a moderate size hiatal hernia. Dictated by... [facility] A Service [facility] RADIOLOGY TEXT RESULTS PATIENT: YNES SOTOMAYOR LOCATION: [facility] 230- : 30 UNIT #: [id number] AGE: [address]: Nkechi Ambriz MD SEX: F ORDER DR: Nam Ceballos Jr., M.D. THIS IS AN ELECTRONICALLY VERIFIED REPORT Nam Ceballos Jr., M.D. at 02/28/2017 1:53 AM JAZMYN/morteza TD: 02/27/2017 11:56 JOB #: [id number] MEDICAL IMAGING REPORT Page 1 of 1 COPY
--- NOTE | ~2017-02-26 | CT71 ---
[facility] A Service of [facility] & [facility] RADIOLOGY TEXT RESULTS PATIENT: YNES SOTOMAYOR LOCATION: A : 30 UNIT #: [id number] AGE: [address]: Nkechi Ambriz MD SEX: F ORDER DR: [id number] [facility] [address] [place], [place] [address] [id number] I MR#: [id number] Acc #: [id number] NAME: YNES SOTOMAYOR. : 1930 SEX: F STUDY DATE/TIME: 02/26/2017 19:31 UNIT: [facility] ROOM: 230 STUDY DESCRIPTION: CT Head Wo Contrast Attending Physician: Sonia Lang M.D. Referring Physician: Cornelio Li M.D. Ordering Physician: Tereso Simental M.D. Primary Care Physician: Cornelio Li M.D. MEDICAL IMAGING REPORT This report is preliminary unless electronic signature is present EXAM CT brain without contrast. HISTORY Headache today. TECHNIQUE This CT exam was performed with one or more of the following radiation dose reduction techniques: automatic exposure control, adjustment of mA and/or kV according to patient size, and iterative reconstruction. FINDINGS CT brain without contrast demonstrates mild chronic ischemic changes in the deep white matter bilaterally. No intracranial hemorrhage, mass or edema. No midline shift or ventricular dilatation or extraaxial fluid collection. IMPRESSION No acute findings. Mild chronic ischemic changes in the deep white matter bilaterally. Dictated by... Saeed Miles M.D. THIS IS AN ELECTRONICALLY VERIFIED REPORT Saeed Miles M.D. at 02/27/2017 11:36 PM DFL/alondra TD: 02/27/2017 12:12 JOB #: [id number] MEDICAL IMAGING REPORT Page 1 of 1 COPY
[2017-02-26 19:12] LABS: BASOPHIL# 0.1 X10e3 (0-0.3); BASOPHIL% 0.3 % (0-2.5); DIFF IND YES; EOSINOPHIL% 0.1 % (0.0-7.0); HEMATOCRIT 38.3 % (35.0-45.0); HEMOGLOBIN 12.6 gm/dL (12.0-16.0); LYMPHOCYTE# 0.4 X10e3 (1.0-3.5); LYMPHOCYTE% 1.4 % (17.0-45.0); MEAN CELL VOLUME 84.1 FL (83-96); MEAN CORPUSCULAR HEMOGLOBIN 27.6 PG (28-34); MEAN CORPUSCULAR HGB CONC 32.8 g/dL (30-36); MEAN PLATELET VOLUME 7.5 FL (6.5-11.5); MONOCYTE# 0.4 X10e3 (0-1.0); MONOCYTE% 1.7 % (3.0-12.0); NEUTROPHIL# 24.9 X10e3 (1.5-7.1); NEUTROPHIL% 96.5 % (40-75); PLATELET COUNT 323 X10e3 (140-420); RED BLOOD COUNT 4.55 X10e (3.90-5.30); RED CELL DISTRIBUTION WIDTH 15.2 % (11.0-15.5); WHITE BLOOD COUNT 25.8 X10e3 (4.0-10.5)
[2017-02-26 19:32] LABS: ALBUMIN SERUM 3.8 g/dL (3.5-5.0); BILIRUBIN, DIRECT 0.1 mg/dL (0.0-0.2); BILIRUBIN,INDIRECT 0.5 mg/dL (0.0-0.9); BILIRUBIN,TOTAL 0.6 mg/dL (0.2-2.0); BUN/CREATININE RATIO 24.28; CALCIUM SERUM 8.8 mg/dL (8.4-10.2); CREATININE SERUM 0.7 mg/dL (0.6-1.4); GLOM FILT RATE Estimated 78.5 mL/min (>60); POTASSIUM 3.9 mmol/L (3.5-5.1); PROTEIN TOTAL SERUM 7.5 g/dL (6.0-8.3)
[2017-02-26 19:36] LABS: ANISOCYTOSIS SL; PLATELET ESTIMATE NORMAL (NORMAL)
[2017-02-26 19:48] LABS: POC - CKMB 1.4 ng/mL (0.0-7.9); POC - TROPONIN <0.05 ng/mL (<=0.05)
[2017-02-26 20:59] LABS: URINE SOURCE CLEAN CATCH
[2017-02-26 21:07] LABS: URINE APPEARANCE CLEAR; URINE BILIRUBIN NEG (NEG); URINE BLOOD 1+ (NEG); URINE COLOR YELLOW; URINE GLUCOSE NEG (NEG); URINE KETONE TRACE (NEG); URINE LEUKOCYTE ESTERASE NEG (NEG); URINE NITRATE NEG (NEG); URINE PH 7.5 (5-8); URINE PROTEIN TRACE (NEG); URINE SPECIFIC GRAVITY 1.016 (1.003-1.035); URINE UROBILINOGEN 0.2 MG/DL (NEG)
[2017-02-26 21:12] LABS: URINE BACTERIA AUWI NEG (NEGATIVE); URINE SQUAMOUS EPITHELIAL CELL NONE SEEN /[HPF]; UWBCS1 AUWI 0-2 (0-5)
[2017-02-26 21:15] LABS: CULTURE INDICATED? NO
[2017-02-26] MEDS ORDERED: ALPRAZOLAM0.25 MG PO (21:47)
[2017-02-26] MEDS ORDERED: PANTOPRAZOLE SO40 MG PO (21:47)
[2017-02-26] MEDS ORDERED: ROSUVASTATIN CA20 MG PO (21:48)
[2017-02-26] MEDS ORDERED: DIOVAN PO (21:49)
[2017-02-26] MEDS ORDERED: AMLODIPINE BESYL5 MG PO (21:49)
[2017-02-26] MEDS ORDERED: MULTI VITAMIN1 EACH PO (21:51)
[2017-02-26] MEDS ORDERED: ENFOLAST TABLE1 EACH PO (21:51)
[2017-02-26 21:52] LABS: POC - CKMB 1.4 ng/mL (0.0-7.9); POC - TROPONIN <0.05 ng/mL (<=0.05)
[2017-02-26] MEDS ORDERED: CALTRATE 600+D PO (21:52)
[2017-02-26] MEDS ORDERED: BAYER ASPIRIN325 M1 PO (21:52)
[2017-02-27 10:32] LABS: BASOPHIL% 0.1 % (0-2.5); HEMATOCRIT 35.1 % (35.0-45.0); HEMOGLOBIN 11.5 gm/dL (12.0-16.0); LYMPHOCYTE# 0.7 X10e3 (1.0-3.5); LYMPHOCYTE% 7.1 % (17.0-45.0); MEAN CELL VOLUME 84.5 FL (83-96); MEAN CORPUSCULAR HEMOGLOBIN 27.8 PG (28-34); MEAN CORPUSCULAR HGB CONC 32.9 g/dL (30-36); MEAN PLATELET VOLUME 7.3 FL (6.5-11.5); MONOCYTE# 0.3 X10e3 (0-1.0); MONOCYTE% 2.9 % (3.0-12.0); NEUTROPHIL# 9.3 X10e3 (1.5-7.1); NEUTROPHIL% 89.9 % (40-75); PLATELET COUNT 331 X10e3 (140-420); RED BLOOD COUNT 4.15 X10e (3.90-5.30); RED CELL DISTRIBUTION WIDTH 15.3 % (11.0-15.5)
[2017-02-27 10:33] LABS: DIFF IND NO; WHITE BLOOD COUNT 10.4 X10e3 (4.0-10.5)
[2017-02-27 10:53] LABS: BUN/CREATININE RATIO 19.09; CALCIUM SERUM 8.8 mg/dL (8.4-10.2); CREATININE SERUM 1.1 mg/dL (0.6-1.4); GLOM FILT RATE Estimated 45.4 mL/min (>60)
[2017-02-27 11:04] LABS: PROCALCITONIN 0.12 NG/ML
[2017-02-27] MEDS ORDERED: ZOLOFT50 MG PO (12:18)
[2017-02-28 05:24] LABS: HEMATOCRIT 34.9 % (35.0-45.0); HEMOGLOBIN 11.3 gm/dL (12.0-16.0); MEAN CELL VOLUME 84.7 FL (83-96); MEAN CORPUSCULAR HEMOGLOBIN 27.4 PG (28-34); MEAN CORPUSCULAR HGB CONC 32.3 g/dL (30-36); RED BLOOD COUNT 4.12 X10e (3.90-5.30); RED CELL DISTRIBUTION WIDTH 15.6 % (11.0-15.5); WHITE BLOOD COUNT 14.6 X10e3 (4.0-10.5)
[2017-02-28 06:11] LABS: BUN/CREATININE RATIO 31.11; CALCIUM SERUM 9.3 mg/dL (8.4-10.2); CREATININE SERUM 0.9 mg/dL (0.6-1.4); GLOM FILT RATE Estimated 57.9 mL/min (>60); POTASSIUM 4.8 mmol/L (3.5-5.1)
[2017-03-01 13:46] LABS: ANA SCREEN Negative (Negative)
[2017-03-02] MEDS ORDERED: PROBIOTIC250 MG PO (12:11)
[2017-03-02] MEDS ORDERED: DOXYCYCLINE HY100 M3 PO (12:12)
[2017-03-02] MEDS ORDERED: SYMBICORT INH (12:13)
[2017-03-02] MEDS ORDERED: PREDNISONE PO (12:13)
[2017-03-02] MEDS ORDERED: ALBUTEROL17 GM INH (12:13)
== END 2017-03-02 13:03 | disposition home or self-care (01) | DRG 190 ==
LOC: CED 18:20 → CEDOF 22:00 → CED 22:21 → C2A 22:21 → CEDOF 02-27 00:15 → C2A 02-27 00:15
PROVIDERS: Emergency Medicine; Internal Medicine
DX: J44.1 Chronic obstructive pulmonary disease with (acute) exacerbation (principal); J96.01 Acute respiratory failure with hypoxia; I27.2 Other secondary pulmonary hypertension; I50.32 Chronic diastolic (congestive) heart failure; I11.0 Hypertensive heart disease with heart failure; J84.10 Pulmonary fibrosis, unspecified; G44.209 Tension-type headache, unspecified, not intractable; I10 Essential (primary) hypertension; E78.5 Hyperlipidemia, unspecified; F41.9 Anxiety disorder, unspecified; K21.9 Gastro-esophageal reflux disease without esophagitis; Z87.891 Personal history of nicotine dependence; Z86.2 Personal history of diseases of the blood and blood-forming organs and certain disorders involving the immune mechanism; I25.10 Atherosclerotic heart disease of native coronary artery without angina pectoris
CPT/HCPCS: 70450; 70544; 71010; 71250; 74230; 80048; 80076; 81003; 82308; 82553; 83605; 83880; 84484; 85025; 85027; 85652; 86038; 86039; 86430; 87040; 92526; 92611; 93005; 96361; 96374; 97110; 97116; 97161; 97165; 97530; 97535; 99291; G8978-GP; G8979-GP; G8987-GO; G8988-GO; G8989-GO; G8996-GN; G8997-GN; G8998-GN; J0696; J1650; J2920; J2930